=== PATIENT | female | born 1960 | race Caucasian/White ===

== ENCOUNTER 2019-12-03 12:32 | Emergency (ER) | payer OTHER, SELFPAY ==
[2019-12-03 12:50] VITALS: BP 152/76; PULSE 84; RESP 16; TEMP 36.9; O2SAT 97
--- NOTE | 2019-12-03 13:11 | ED.SKABFB ---
HPI - Skin/Abscess/Foreign Bdy General Chief complaint: Skin/Abscess/Foreign Body Stated complaint: rash on mouth Time Seen by Provider: 12/03/19 13:00 Source: patient and RN notes reviewed Mode of arrival: ambulatory Limitations: no limitations History of Present Illness HPI narrative: 59-year-old female presents with concern to a rash around her lips. She reports the rash started approximately 5 days ago, and has gotten worse. She reports she has been using Vaseline with no relief. Reports the rash is burning and slightly itching. Denies any new skin care products. MD complaint: rash Related Data Home Medications Medication Instructions Recorded Confirmed lisinopril 10 mg DAILY 12/03/19 12/03/19 metoprolol tartrate 25 mg DAILY 12/03/19 12/03/19 sertraline 50 mg DAILY 12/03/19 12/03/19 Allergies Allergy/AdvReac Type Severity Reaction Status Date / Time No Known Allergies Allergy Unknown Verified 12/03/19 12:57 Review of Systems Review of Systems: Narrative: CONSTITUTIONAL: Denies malaise, chills, sweats, or fever. EYES: Denies visual changes, redness, or discharge. ENT: Denies rhinorrhea, congestion, sinus pain, otalgia or sore throat. CARDIOVASCULAR: Denies chest pain, palpitations RESPIRATORY: Denies cough or dyspnea. SKIN: Reports burning rash around lips, denies any involvement in the oral mucosa MUSCULOSKELETAL: Denies myalgia. All systems reviewed & are unremarkable except as noted in HPI and below PMFSH Family History Family History (Updated 04/25/14 @ 07:13 by DOCTOR UNKNOWN) Mother Hypertension Family history of Parkinson's disease Family history of Alzheimer's disease Family history of dementia Father Family history of alcoholism Family history of lung cancer Social History Social History Smoking status: Former smoker Second hand tobacco smoke exposure: No Smoking end date: 08/29/10 Alcohol intake: never Gender identity (if verbalized by the patient): Female Comments At time of signature, agree with nursing past medical, surgical, social and family history. There is no relevant family history pertinent to the presenting complaint Exam Narrative: Exam Narrative: GENERAL: Well-appearing, well-nourished, and in no acute distress. HEAD: Normocephalic, atraumatic. EYES: PERRLA, conjunctivae clear, and EOMI. No nystagmus. ENT: Nares clear. Mucous membranes moist. Oropharynx without edema, erythema or lesions. NECK: Supple. CHEST: No respiratory distress. Speaks in full sentences. HEART: Regular rate and rhythm. SKIN: Warm, dry. Excoriated rash around the lips, not involving oral mucosa, no other rash noted NEURO: Alert and oriented x3. PSYCH: Normal mood and affect Course Course Emergency Course: Patient is aware of diagnosis, understands and agrees to treatment plan. Anticipatory guidance given. Patient agrees to follow-up as directed and is aware of reasons to seek care at the emergency department. Portions of this record may have been created with voice recognition software Vital Signs Vital signs: Vital Signs Temperature 98.5 F 12/03/19 12:50 Pulse Rate 84 12/03/19 12:50 Respiratory Rate 16 12/03/19 12:50 Blood Pressure 152/76 H 12/03/19 12:50 Pulse Oximetry 97 12/03/19 12:50 Temperature 98.5 F 12/03/19 12:50 Pulse Rate 84 12/03/19 12:50 Respiratory Rate 16 12/03/19 12:50 Blood Pressure 152/76 H 12/03/19 12:50 Pulse Oximetry 97 12/03/19 12:50 Reviewed. Patient has history of hypertension MDM - Skin/Abscess/Foreign Bdy MDM Narrative Medical decision making narrative: Does not appear at this time to be erythema multiforme, bullous, SJS, TEN; no evidence at this time to suggest RMSF, endocarditis or Lyme disease; patient looks well, nontoxic and is tolerating oral intake; no neurologic signs or symptoms; no headache, photophobia or neck pain; afebrile; appropriate for initial outpatient treatment; discussed the importance of
== END 2019-12-03 13:25 | disposition home or self-care (01) ==
PROVIDERS: Emergency Provider Nurse Practitioner; PCP Family Medicine
DX: K13.0 Diseases of lips (principal); Z87.891 Personal history of nicotine dependence; I10 Essential (primary) hypertension; F41.9 Anxiety disorder, unspecified
CPT/HCPCS: 99213; G0463

== ENCOUNTER 2020-04-08 08:17 | Outpatient (CLI) | payer OTHER, SELFPAY ==
[2020-04-08 09:08] LABS: Hematocrit 43.9 % (37.0-47.0); Hemoglobin 13.9 g/dL (12.0-15.0); Mean Corpuscular HGB Conc 31.7 g/dl (32-36); Mean Corpuscular Hemoglobin 29.6 pg (26-34); Mean Corpuscular Volume 93.6 fl (80-100); Mean Platelet Volume 10.1 fl (7.4-10.4); Platelet Count Result 294 k/mm3 (150-375); Red Blood Count 4.69 M/mm3 (4.2-5.4); Red Cell Distribution Width 13.5 % (11.5-14.5); White Blood Count 10.4 K/mm3 (4.5-10.0)
[2020-04-08 09:27] LABS: Alanine Aminotransferase 22 U/L (4-35); Albumin Level 3.9 g/dL (3.5-5.1); Alkaline Phosphatase 84 U/L (38-126); Anion Gap 6 mmol/L (8-16); Aspartate Amino Transferase 21 U/L (14-36); Bilirubin,Total 0.3 mg/dL (0.2-1.3); Blood Urea Nitrogen 15 mg/dL (7-17); Calcium 8.8 mg/dL (8.4-10.2); Carbon Dioxide 32 mmol/L (22-30); Chloride 100 mmol/L (98-107); Cholesterol 223 mg/dL (0-200); Estimated Glomerular Filt Rate > 60; Glucose 132 mg/dL (65-105); HDL Direct 40 mg/dL; Potassium 3.8 mmol/L (3.4-5.0); Sodium 138 mmol/L (137-145); Triglycerides 144 mg/dL (<150)
[2020-04-08 09:38] LABS: LDL Cholesterol Direct 157 mg/dL
[2020-04-08 18:35] LABS: Free T4 Free Thyroxine Reflex 0.86 ng/dL (0.78-2.19)
== END 2020-04-08 08:18 | disposition home or self-care (01) ==
LOC: ANHLAB 08:19
PROVIDERS: PCP Family Medicine; Visit Provider Family Medicine
DX: E11.9 Type 2 diabetes mellitus without complications (principal); I10 Essential (primary) hypertension; E78.2 Mixed hyperlipidemia; R53.83 Other fatigue
CPT/HCPCS: 36415; 80053; 80061; 83036; 84439; 84443; 84480; 85027

== ENCOUNTER 2020-06-27 13:49 | Outpatient (CLI) | payer OTHER, SELFPAY ==
--- NOTE | ~2020-06-27 | US_ITS ---
EXAMINATION: US art doppler w press LE BI DATE: 06/27/2020 14:51 INDICATION: Chronic nonproductive ulcer at the left lower limb. Hypercholesterolemia, hypertension an d prior smoker. TECHNIQUE: Segmental pressures and plethysmographic and Doppler waveforms of the brachial and lower e xtremity arteries were obtained. COMPARISON: None. FINDINGS: Right and left brachial artery pressures of 143 mm Hg and 138 mm Hg, respectively, are concordant (no rmal difference <= 30 mmHg). The right ankle-brachial index (FRANCISCO) is 1.04 (normal >= 0.9-1). The right great toe-brachial index (T BI) is 1.09 (normal >= 0.6-0.8). Arterial waveforms are biphasic with brisk systolic upstrokes throug hout the right lower limb. The left FRANCISCO is 1.13. The left TBI is 0.87. Arterial waveforms are triphasic at the left common femor al and posterior tibial arteries and biphasic at the left popliteal and dorsalis pedis arteries with brisk systolic upstrokes throughout. IMPRESSION: 1. Normal FRANCISCO's and TBI's bilaterally. No significant occlusive disease. Reviewed, dictated and finalized at location B.
== END 2020-06-27 13:50 | disposition home or self-care (01) ==
LOC: ANHIMG 13:52
PROVIDERS: PCP Family Medicine; Visit Provider Family Medicine
DX: L98.499 Non-pressure chronic ulcer of skin of other sites with unspecified severity (principal)
CPT/HCPCS: 93923

== ENCOUNTER 2021-06-22 10:45 | Emergency (ER) | payer OTHER, SELFPAY ==
[2021-06-22 11:00] VITALS: BP 139/77; PULSE 78; RESP 18; TEMP 36.5; O2SAT 98
--- NOTE | 2021-06-22 11:20 | ED.FEMALEGU ---
HPI - Female Genitourinary General Chief complaint: Urogenital-Female Stated complaint: UTI Time Seen by Provider: 06/22/21 11:10 Source: patient, family and RN notes reviewed Mode of arrival: ambulatory History of Present Illness HPI Narrative: 61-year-old female who presents to [facility] with complaints of 4 day duration of urethral pain with urgency and frequency of urination. Patient states that she is also having some right lower back pain which is nonradiating. Patient states that she has not had any fevers, chills or sweats, denies any nausea or vomiting or diarrhea. Patient states no vaginal discharge or itching and denies any concern for STD's. Patient denies any use of AZO for urinary symptoms. Patient states that she had a kidney stone about 5 years ago but passed on own. Patient states that she is not sleeping well due to her discomfort MD elicited complaint: dysuria and back pain (right) Related Data Home Medications Medication Instructions Recorded Confirmed lisinopril 10 mg DAILY 12/03/19 06/22/21 metoprolol tartrate 25 mg DAILY 12/03/19 06/22/21 Allergies Allergy/AdvReac Type Severity Reaction Status Date / Time No Known Allergies Allergy Unknown Verified 06/22/21 11:25 Review of Systems Review of Systems: CONSTITUTIONAL: Denies fever, chills, or sweats. EYES: Denies visual changes, redness, or discharge. ENT: Denies rhinorrhea, congestion, sore throat, or otalgia. CARDIOVASCULAR: Denies chest pain, palpitations, or edema. RESPIRATORY: Denies cough or dyspnea. GASTROINTESTINAL: Denies abdominal pain, nausea, vomiting, or diarrhea. GENITOURINARY: positive dysuria or hematuria. SKIN: Denies rash or itching. MUSCULOSKELETAL: positive right sided back pain,no joint pain, or myalgia. NEUROLOGIC: Denies headache, numbness, or weakness. PSYCHIATRIC: Positive history anxiety or depression. All systems reviewed & are unremarkable except as noted in HPI and below [facility] Past Medical History Medical History (Updated 06/24/21 @ 13:09 by Ruth Magana NP) Anxiety disorder, unspecified Borderline hypothyroidism Cardiomyopathy in disease classified elsewhere Essential hypertension Kidney stone Mixed hyperlipidemia Obstructive sleep apnea PAT (paroxysmal atrial tachycardia) Prediabetes Right sided sciatica Surgical History Surgical History (Updated 06/24/21 @ 13:08 by Ruth Magana NP) H/O dilation and curettage H/O tubal ligation H/O: hysterectomy History of eye surgery left Family History Family History Mother Hypertension Family history of Parkinson's disease Family history of Alzheimer's disease Family history of dementia Father Family history of alcoholism Family history of lung cancer Social History Social History (Updated 06/24/21 @ 13:15 by Ruth Magana NP) Smoking status: Former smoker Second hand tobacco smoke exposure: No Smoking end date: 08/29/10 Alcohol intake: current Alcohol use details: rare social Substance use: never Living arrangements: with family Gender identity (if verbalized by the patient): Female Comments At time of signature, agree with nursing past medical, surgical, social and family history. There is no relevant family history pertinent to the presenting complaint Exam Narrative: GENERAL: Well-appearing, well-nourished, and in no acute distress. HEAD: Normocephalic, atraumatic. EYES: PERRLA and EOMI. ENT: Nares clear, no rhinorrhea or epistaxis. Mucous membranes moist.TM's normal with good light reflex, throat pink with no lesions or exudates, no tonsil enlargement. NECK: Supple. no lymphadenopathy CHEST: Clear to auscultation. No respiratory distress. SAO2 98% on room air HEART: Regular rate and rhythm. No murmur heard. Normal peripheral pulses. ABDOMEN: Soft, nontender to palpation, nondistended, normal active bowel sounds.Right CVA tenderness on exam. EXTREMITIE
== END 2021-06-22 11:45 | disposition home or self-care (01) ==
PROVIDERS: Emergency Provider Registered Nurse; PCP Family Medicine
DX: N39.0 Urinary tract infection, site not specified (principal); I10 Essential (primary) hypertension; G47.33 Obstructive sleep apnea (adult) (pediatric); R73.03 Prediabetes; I42.9 Cardiomyopathy, unspecified; F41.9 Anxiety disorder, unspecified
CPT/HCPCS: 81003; 87086; 87088; 99213; G0463

== ENCOUNTER 2021-09-14 11:58 | Emergency (ER) | payer OTHER, SELFPAY ==
--- NOTE | 2021-09-14 12:07 | ED.SKABFB ---
HPI - Skin/Abscess/Foreign Bdy General Chief complaint: Skin/Abscess/Foreign Body Stated complaint: Rash on Face Time Seen by Provider: 09/14/21 12:00 Source: patient and RN notes reviewed Mode of arrival: ambulatory Limitations: no limitations History of Present Illness HPI narrative: 61-year-old female presents to the [facility] with redness, drying and cracking to the corners of her mouth. States it started approximately 2 weeks ago and has been using Vaseline with no improvement. Had the same thing a while ago and states that treatment worked well for her. Denies fevers. No other respiratory symptoms. Related Data Home Medications Medication Instructions Recorded Confirmed lisinopril 10 mg DAILY 12/03/19 09/14/21 metoprolol tartrate 25 mg DAILY 12/03/19 09/14/21 Allergies Allergy/AdvReac Type Severity Reaction Status Date / Time No Known Allergies Allergy Unknown Verified 09/14/21 12:13 Review of Systems Review of Systems: All systems reviewed & are unremarkable except as noted in HPI and below Constitutional: Constitutional: Reports no additional constitutional complaints, Denies chills and Denies fever(s) Eyes: Eyes: Reports no additional eye complaints ENT: Reports system reviewed and no additional complaints, except as documented Cardiovascular: Cardiovascular: Reports no additional cardiovascular complaints Respiratory: Respiratory: Reports no additional respiratory complaints Gastrointestinal: Gastrointestinal: Reports no additional gastrointestinal complaints Musculoskeletal: Musculoskeletal: Reports no additional musculoskeletal complaints Integumentary/Breasts: Skin/Breast: Reports as per HPI Comments: Redness, cracking and dryness corners of the mouth Neurologic: Reports system reviewed and no additional complaints, except as documented Psychiatric: Psychiatric: Reports no additional psychiatric complaints Allergic/Immunologic: Allergic/Immunologic: Reports no additional allergic/immunologic complaints [facility] Past Medical History Medical History Anxiety disorder, unspecified Borderline hypothyroidism Cardiomyopathy in disease classified elsewhere Essential hypertension Kidney stone Mixed hyperlipidemia Obstructive sleep apnea PAT (paroxysmal atrial tachycardia) Prediabetes Right sided sciatica Surgical History Surgical History H/O dilation and curettage H/O tubal ligation H/O: hysterectomy History of eye surgery left Family History Family History Mother Hypertension Family history of Parkinson's disease Family history of Alzheimer's disease Family history of dementia Father Family history of alcoholism Family history of lung cancer Social History Social History Smoking status: Former smoker Second hand tobacco smoke exposure: No Smoking end date: 08/29/10 Alcohol intake: current Alcohol use details: rare social Substance use: never Gender identity (if verbalized by the patient): Female Comments At the time of my signature, I reviewed and agree with the nursing past medical, surgical, social, and family history. There is no relevant family history pertinent to the patient complaint. Exam Const: General: healthy appearing, no acute distress and alert Nutritional Appearance: well nourished Orientation/consciousness: patient oriented x3 Limitations: no limitations HENMT: Head: normal to inspection Ears: external ears normal Nose image: 1. Redness, drying cracking 2. Redness dry and cracking Mouth: Yes Normal oral and palatal mucosa present Throat: posterior oropharynx normal Eyes: Pupils: Equal, round and reactive pupils present Neck: Neck: normal visual inspection, no lymphadenopathy and no meningeal signs Chest: Chest palpation & ins
[2021-09-14 12:08] VITALS: BP 134/71; PULSE 74; RESP 16; TEMP 35.8; O2SAT 92
== END 2021-09-14 12:20 | disposition home or self-care (01) ==
PROVIDERS: Emergency Provider Nurse Practitioner; PCP Family Medicine
DX: K13.0 Diseases of lips (principal); Z87.891 Personal history of nicotine dependence; I10 Essential (primary) hypertension; E78.2 Mixed hyperlipidemia; G47.33 Obstructive sleep apnea (adult) (pediatric); R73.03 Prediabetes
CPT/HCPCS: 99213; G0463

== ENCOUNTER 2024-11-29 14:31 | Outpatient (RCR) | payer OTHER, SELFPAY | END 2025-02-18 14:05 | disposition home or self-care (01) | LOC: ANHDMC 14:31 | PROVIDERS: PCP Family Medicine; Visit Provider Family Medicine | DX: E11.9 Type 2 diabetes mellitus without complications (principal); Z71.3 Dietary counseling and surveillance | CPT/HCPCS: G0108 ==